=== PATIENT | female | born 1985 | race Caucasian/White ===

== ENCOUNTER 2016-12-13 05:21 | Inpatient (IN) | payer BC ==
[2016-12-13] VITALS (16 sets, daily range): BP systolic 110–142; BP diastolic 66–83; PULSE 60–97; TEMP 97.5–98.2
[~2016-12-13] VITALS: Ht 152.4 cm; Wt 72.3 kg
[~2016-12-13 05:21] MED LIST: CEFTIN500 MG PO; DIFLUCAN100 MG PO; FLOMAX0.4 MG PO; LORTAB 5/500 501 TAB PO; NO HOME MEDICATIONS; NORCO 325 MG-51 TAB PO; PHENERGAN 25 TA25 MG PO
[2016-12-13 06:11] LABS: BASO % 0.3 % (0.0-2.0); EOS # 0.2 (0.0-0.7); GRAN # 7.7 (1.4-6.5); GRAN % 68.8 % (42.2-75.2); LYMPH # 2.1 (1.2-3.4); LYMPH % 18.3 % (20.0-51.0); MEAN CELL VOLUME 87 fl (80.0-100.0); MEAN CORPUSCULAR HGB CONC 34 g/dl (33.0-37.0); MEAN PLATELET VOLUME 12.3 fl (7.4-10.4); MONO # 1.2 (0.1-0.6); MONO % 10.2 % (1.7-9.3); PLATELET COUNT 187 K/mm3 (130-400); RED BLOOD COUNT 3.93 M/mm3 (4.10-5.30); REDCELL DISTRIBUTION WIDTH-CV 13.6 % (11.5-14.5); WHITE BLOOD COUNT 11.2 K/mm3 (4.8-10.8)
[2016-12-13 06:15] LABS: HEMATOCRIT 34.1 % (37.0-47.0); HEMOGLOBIN 11.5 g/dl (12.5-16.0); MEAN CORPUSCULAR HEMOGLOBIN 29 pg (27.0-31.0)
[2016-12-13] MEDS ORDERED: PRENATAL (09:50)
[2016-12-13] MEDS ORDERED: PROTONIX20 MG PO (09:51)
[2016-12-13] MEDS ORDERED: IRON325 MG PO (09:51)
[2016-12-14 00:20] VITALS: BP 108/68; PULSE 63; TEMP 97.6
[2016-12-14 03:45] VITALS: BP 104/71; PULSE 66; TEMP 98.2
[2016-12-14 07:44] LABS: BASO % 0.4 % (0.0-2.0); EOS # 0.2 (0.0-0.7); EOS % 1.5 % (0-4.0); GRAN # 7.8 (1.4-6.5); GRAN % 68.5 % (42.2-75.2); LYMPH # 2.2 (1.2-3.4); LYMPH % 18.9 % (20.0-51.0); MEAN CELL VOLUME 91 fl (80.0-100.0); MEAN CORPUSCULAR HGB CONC 33 g/dl (33.0-37.0); MEAN PLATELET VOLUME 11.9 fl (7.4-10.4); MONO # 1.2 (0.1-0.6); MONO % 10.2 % (1.7-9.3); PLATELET COUNT 173 K/mm3 (130-400); RED BLOOD COUNT 3.74 M/mm3 (4.10-5.30); REDCELL DISTRIBUTION WIDTH-CV 13.9 % (11.5-14.5); WHITE BLOOD COUNT 11.4 K/mm3 (4.8-10.8)
[2016-12-14 07:50] LABS: HEMOGLOBIN 11.2 g/dl (12.5-16.0); MEAN CORPUSCULAR HEMOGLOBIN 30 pg (27.0-31.0)
[2016-12-14 08:12] VITALS: BP 104/68; PULSE 64; TEMP 97.5
[2016-12-14] MEDS ORDERED: PERCOCET 325 MG1 TA2 PO (14:32)
[2016-12-14] MEDS ORDERED: IBU800 M1 PO (14:32)
[2016-12-14 15:17] VITALS: BP 114/77; PULSE 70; TEMP 97.8
[2016-12-14 21:10] VITALS: BP 109/73; PULSE 62; TEMP 98.2
[2016-12-15 08:01] VITALS: BP 118/78; PULSE 65; TEMP 97.4
== END 2016-12-15 13:00 | disposition home or self-care (01) | DRG 766 ==
LOC: OB 05:21
PROVIDERS: Student in an Organized Health Care Education/Training Program
PROC: 10D00Z1 Extraction of Products of Conception, Low, Open Approach (ICD-10-PCS; principal; 2016-12-13)
DX: O32.1XX0 Maternal care for breech presentation, not applicable or unspecified (principal); Z3A.39 39 weeks gestation of pregnancy; Z37.0 Single live birth; O09.813 Supervision of pregnancy resulting from assisted reproductive technology, third trimester
CPT/HCPCS: J0690; J1885; J2270; J2370; J2405; J2590; J7120

== ENCOUNTER → 2017-09-12 | Outpatient (CLI) | payer BC ==
[~2017-09-12] MED LIST changes: +IBU800 M1 PO; +IRON325 MG PO; +PERCOCET 325 MG1 TA2 PO; +PRENATAL; +PROTONIX20 MG PO
== END ==
LOC: COL.CARD 09:51
DX: R00.2 Palpitations (principal)

== ENCOUNTER 2019-05-15 11:19 | Inpatient (IN) | payer OTHER ==
[~2019-05-15] VITALS: Ht 157.5 cm; Wt 75.0 kg
[2019-05-15] VITALS (17 sets, daily range): BP systolic 98–129; BP diastolic 60–93; PULSE 53–111; TEMP 97.8–98.3
--- NOTE | 2019-05-15 11:20 | NUR ---
Patient arrives ambulatory with spouse for scheduled repeat section. Patient denies contractions, ROM or vaginal bleeding. Reports normal movement. Changes into gown, EFM explained and placed. VSS. Plan of care reviewed. Patient denies questions. 1135- IV started in RFA. Labs obtained and LR infusing per protocol. Assessment completed. Consents explained and signed. Preop shave and soap scrub completed per protocol. 1225- Reactive FHR strip obtained. Patient taken off EFM per protocol.
[2019-05-15] MEDS ORDERED: PROTONIX 40MG T40 MG PO (12:05)
[2019-05-15 12:15] LABS: BASO % 0.3 % (0.0-2.0); EOS # 0.2 (0.0-0.7); EOS % 1.4 % (0-4.0); GRAN # 8.3 (1.4-6.5); GRAN % 70.5 % (42.2-75.2); HEMOGLOBIN 10.6 g/dl (12.5-16.0); MEAN CELL VOLUME 84 fl (80.0-100.0); MEAN CORPUSCULAR HEMOGLOBIN 27 pg (27.0-31.0); MEAN CORPUSCULAR HGB CONC 32 g/dl (33.0-37.0); MEAN PLATELET VOLUME 11.3 fl (7.4-10.4); MONO # 1.2 (0.1-0.6); MONO % 10.4 % (1.7-9.3); PLATELET COUNT 242 K/mm3 (130-400); RED BLOOD COUNT 3.92 M/mm3 (4.10-5.30); REDCELL DISTRIBUTION WIDTH-CV 12.9 % (11.5-14.5)
[2019-05-15 12:17] LABS: HEMATOCRIT 32.9 % (37.0-47.0)
[2019-05-16 01:00] VITALS: BP 104/65; PULSE 66; TEMP 97.4
[2019-05-16 07:45] VITALS: BP 112/73; PULSE 60; TEMP 97
[2019-05-16 16:15] VITALS: BP 90/58; PULSE 60; TEMP 98
[2019-05-16] MEDS ORDERED: MOTRIN 800800 MG/TAB PO (16:28)
== END 2019-05-16 17:05 | disposition home or self-care (01) | DRG 788 ==
LOC: OB 11:19 → LDR 16:16 → OB 05-16 17:05
PROVIDERS: ADMIT Student in an Organized Health Care Education/Training Program
PROC: 10D00Z1 Extraction of Products of Conception, Low, Open Approach (ICD-10-PCS; principal; 2019-05-15)
DX: O34.211 Maternal care for low transverse scar from previous cesarean delivery (principal); N97.9 Female infertility, unspecified; O69.82X0 Labor and delivery complicated by other cord entanglement, without compression, not applicable or unspecified; Z3A.39 39 weeks gestation of pregnancy; Z37.0 Single live birth
CPT/HCPCS: J0690; J2270; J2370; J2405; J2590; J7120

== ENCOUNTER → 2021-03-21 | Outpatient (CLI) | payer OTHER ==
[~2021-03-21] MED LIST changes: +MOTRIN 800800 MG/TAB PO; +PROTONIX 40MG T40 MG PO
== END ==
LOC: COL.LAB 13:53
DX: L30.9 Dermatitis, unspecified (principal)